=== PATIENT | female | born 1980 | race Hispanic/Latino ===

== ENCOUNTER 2018-08-03 17:51 | Emergency (ER) | payer BC, MEDICAID ==
[2018-08-03 17:52] VITALS: BMI 28.8
[2018-08-03 18:51] VITALS: BP 115/76; PULSE 102; RESP 16; TEMP 98.4; O2SAT 98
[2018-08-03] MEDS ORDERED: Naproxen 500 MG TAB PO STA (19:05)
--- NOTE | 2018-08-03 19:14 | ED PDOC ---
HPI: CCC, URI, Sore Throat Time Seen by Provider: 08/03/18 18:58 Chief Complaint (Nursing): ENT Problem Chief Complaint (Provider): ENT Problem History Per: Patient History/Exam Limitations: no limitations Onset/Duration Of Symptoms: Days Current Symptoms Are (Timing): Still Present Location Of Pain: Throat Additional Complaint(s): 38 y/o female with a PMHx of fibromyalgia and anxiety presents to the ED for evaluation of throat pain, onset three days ago. Patient notes pain is associated with voice hoarseness and body aches. Patient reports of using halls with no relief. Otherwise: (-) fever, (-) ear pain, (-) cough, (-) shortness of breath, (-) nausea, (-) vomiting, (-) diarrhea, (-) headache, (-) dizziness, (-) sick contacts PMD: In [place]. LNMP: 07/28/2018 Past Medical History Reviewed: Historical Data, Nursing Documentation, Vital Signs Vital Signs: Last Vital Signs Temp 98.4 F 08/03/18 18:51 Pulse 102 H 08/03/18 18:51 Resp 16 08/03/18 18:51 BP 115/76 08/03/18 18:51 Pulse Ox 98 08/03/18 18:51 Primary Care Provider: FAMILY PROVIDER,NO - Medical History PMH: Anxiety, Depression, Fibromyalgia, Gastritis, Migraine (FREQUENT HEADACHES) - Surgical History Surgical History: Hernia Repair - Family History Family History: States: Unknown Family Hx - Home Medications Home Medications: Ambulatory Orders Medication Instructions Recorded Famotidine [Pepcid] 20 mg PO DAILY #0 tab 10/29/15 Sertraline 12/05/16 Naproxen 500 mg PO BID PRN #20 tab 08/03/18 - Allergies Allergies/Adverse Reactions: Allergies Allergy/AdvReac Type Severity Reaction Status Date / Time No Known Allergies Allergy Verified 08/03/18 18:53 Review of Systems ROS Statement: Except As Marked, All Systems Reviewed And Found Negative Constitutional: Positive for: Other (BODY ACHES). Negative for: Fever ENT: Positive for: Throat Pain, Other (VOICE HOARSENESS). Negative for: Ear Pain Respiratory: Negative for: Cough, Shortness of Breath Gastrointestinal: Negative for: Nausea, Vomiting Neurological: Negative for: Dizziness Physical Exam - Reviewed Nursing Documentation Reviewed: Yes Vital Signs Reviewed: Yes - Physical Exam Comments: GENERAL APPEARANCE: Patient is awake, alert, oriented x 3, in no acute distress. Resting comfortably. SKIN: Warm, dry; (-) cyanosis. EYES: (-) conjunctival injection ENMT: Mucous membranes moist. Airway patent: (-) stridor. Pharynx: uvula midline (-) swelling, (+) faint erythema, (-) exudate. TMs: (-) bulging, (-) erythema. (-) sinus tenderness. Nares patent, (-) rhinorrhea NECK: Supple, FROM (-) tenderness, (-) stiffness, (-) lymphadenopathy. CHEST AND RESPIRATORY: (-) rhonchi, (-) rales, (-) wheezes; breath sounds equal bilaterally. Respirations even and nonlabored. HEART AND CARDIOVASCULAR: (-) irregularity ABDOMEN AND GI: Soft; (-) tenderness. EXTREMITIES: (-) deformity NEURO AND PSYCH: Mental status as above. Cranial nerves grossly intact; strength symmetric. Gait: steady. Speech: clear. (-) facial asymmetry - Laboratory Results Urine POC: Negative - ECG O2 Sat by Pulse Oximetry: 98 (RA) Pulse Ox Interpretation: Normal Medical Decision Making Medical Decision Making: Time: 1904 Impression: Pharyngitis, likely viral Plan: -- Naproxen 500 mg PO -- Throat Culture -- Rapid Strep Group A Antigen 2000 Rapid Strep: negative Repeat HR: 82 On re-evaluation, patient reports improvement of symptoms. On exam, patient remains AAOx3, in no acute distress. VSS, stable for discharge. Lab/Diagnostic results d/w the patient in great detail. Diagnosis of viral pharyngitis/laryngitis d/w the patient. Based on history, exam and diagnostic results, plan will be for outpatient follow up with PMD. Patient instructed to follow-up with pmd / referral provided / the clinic in 1- 2 days without fail. Advised to take medication as prescribed. Return to the emergency room at any time for any new or worsening symptoms. Patient states she fully agrees with and understands discharge instructions. States that she agrees with the plan and disposition. Verbalized and repeated discharge instructions and plan. I have given the patient opportunity to ask any additional questions. Scribe Attestation: Documented by Washington Manzanares, acting as a scribe Nabeel Shen PA-C. Provider Scribe Attestation: All medical record entries made by the Scribe were at my direction and personally dictated by me. I have reviewed the chart and agree that the record accurately reflects my personal performance of the history, physical exam, medical decision making, and the department course for this patient. I have also personally directed, reviewed, and agree with the discharge instructions and disposition. Disposition - Clinical Impression Clinical Impression: Viral pharyngitis, Laryngitis - Patient ED Disposition Is Patient to be Admitted: No Counseled Patient/Family Regarding: Studies Performed, Diagnosis, Need For Followup, Rx Given - Disposition Referrals: primary, doctor [Other] Disposition: Routine/Home Disposition Time: 20:00 Condition: STABLE Additional Instructions: The emergency medical care you received today was directed at your acute symptoms. If you were prescribed any medication, please fill it and take as directed. It may take several days for your symptoms to resolve. Return to the Emergency Department if your symptoms worsen, do not improve, or if you have any other problems. Please contact your doctor in 2 days for re-evaluation and follow up / or call one of the physicians/clinics you have been referred to that are listed on the Patient Visit Information form that is included in your discharge packet. Bring any paperwork you were given at discharge with you along with any medications you are taking to your follow up visit. Our treatment cannot replace ongoing medical care by a primary care provider (PCP) outside of the emergency department. Prescriptions: Naproxen 500 mg PO BID PRN #20 tab PRN Reason: Pain, Moderate (4-7) Instructions: Viral Pharyngitis, Laryngitis, Sore Throat, Adult (DC) Forms: [employer] (H[place]er) Print Language: THAI - POA Present On Arrival: None Results - Lab Results Lab Results: 08/03/18 19:30 Grp A Beta Strep Ag Negative
[2018-08-03] MEDS ORDERED: Naproxen 500 MG TAB PO ONE (19:28)
== END 2018-08-03 20:45 | disposition home or self-care (01) ==
LOC: H.ER 17:51
DX: J02.9 Acute pharyngitis, unspecified (principal); J04.0 Acute laryngitis; M79.7 Fibromyalgia